=== PATIENT | male | born 1985 | race African-American/Black ===

== ENCOUNTER 2018-01-28 14:16 | Emergency (ER) | payer OTHER ==
[~2018-01-28] VITALS: Ht 180.3 cm; Wt 104.5 kg
[2018-01-28 14:34] VITALS: Ht 180.3 cm; Wt 104.5 kg
[2018-01-28] MEDS ORDERED: HTN (14:35)
[2018-01-28] MEDS ORDERED: BACTRIM 400-801 TAB PO (15:46)
[2018-01-28] MEDS ORDERED: PREDNISONE10 MG PO (15:46)
[2018-01-28 16:18] VITALS: BP 136/82
== END 2018-01-28 16:21 | disposition home or self-care (01) ==
LOC: D.ER 14:16
DX: L02.512 Cutaneous abscess of left hand (principal); I10 Essential (primary) hypertension